=== PATIENT | female | born 1990 | race Caucasian/White ===

== ENCOUNTER 2020-03-11 16:38 | Emergency (ER) | payer OTHER, MEDICAID, SELFPAY ==
[2020-03-11 16:43] VITALS: BP 148/77; PULSE 65; RESP 20; TEMP 37.1; O2SAT 99
--- NOTE | 2020-03-11 17:15 | ED.GENADULT ---
HPI - General Adult General Chief complaint: Ear Stated complaint: EAR INF Time Seen by Provider: 03/11/20 17:18 Source: patient and RN notes reviewed Mode of arrival: ambulatory Limitations: no limitations History of Present Illness HPI narrative: 29-year-old female presents with complaints of left otalgia and drainage for 1 day. Has been swimming and getting water into ear. Tylenol last at 08:00 with little relief. Denies trouble hearing. Denies URI symptoms, No high fevers or chills. Denies injury to the ear. No nasal drainage and congestion. Denies nausea, vomiting, tinnitus, and dizziness. The patient reports she have not been diagnosed with COVID-19. The patient reports she is not waiting for the results of a COVID-19 lab test. The patient reports she do not have fever, chills, weakness, fatigue, myalgia, or facial swelling. The patient reports she do not have a new or worsening cough or shortness of breath. Denies chest pain. The patient reports he do not have any rhinorrhea, congestion, sore throat, abdominal pain, and diarrhea. Tolerating po intake well. Denies recent traveling. Denies concerns for COVID-19 or exposures been home with limited outdoor exposure except for essential household needs, work, and return home. At this time, patient is not suspected of having COVID-19. Some parts of this dictation were generated by voice recognition software and may contain typographical and/or grammatical inaccuracies. Related Data Allergies Allergy/AdvReac Type Severity Reaction Status Date / Time No Known Allergies Allergy Verified 03/11/20 16:54 Review of Systems Review of Systems: Narrative: CONSTITUTIONAL: Denies fever, chills, sweats. EYES: Denies visual changes, redness, discharge. ENT: Denies rhinorrhea, congestion, sore throat, itching. Complains of LT otalgia and drainage. CARDIOVASCULAR: Denies chest pain, palpitations, edema. RESPIRATORY: Denies dyspnea, wheezing, cough. GASTROINTESTINAL: Denies abdominal pain, nausea, vomiting, diarrhea. GENITOURINARY: Denies dysuria, hematuria, abnormal discharge. SKIN: Denies rash or itching. MUSCULOSKELETAL: Denies acute back pain, joint pain, or myalgia. NEUROLOGIC: Denies numbness or focal weakness. PSYCHIATRIC: Denies anxiety or depression. All systems reviewed & are unremarkable except as noted in HPI and below PMFSH Past Medical History Medical History (Updated 03/18/20 @ 11:33 by MARIELLA Dacosta) History of gastroesophageal reflux (GERD) Hx of migraines Surgical History Surgical History (Updated 03/18/20 @ 11:33 by MARIELLA Dacosta) No significant past surgical history Family History Family History (Updated 03/18/20 @ 11:34 by MARIELLA Dacosta) Father Unknown family medical history Mother Hypertension Lupus Social History Social History (Updated 03/18/20 @ 11:36 by MARIELLA Dacosta) Smoking status: Never smoker Living arrangements: with family Occupation/Education: occupation Gender identity (if verbalized by the patient): Female Sexual Orientation (if Verbalized by the Patient): Straight or Heterosexual Comments At time of signature, I have reviewed and agree with nursing past medical, surgical, social, and family history. Please see nursing chart for further information. There is no relevant family history pertinent to the presenting complaint. Exam Narrative: Exam Narrative: GENERAL: This is a well-nourished, well-developed patient, in no apparent distress. Talks in full sentences and ambulates with steady gait without dyspnea HEAD: normocephalic, atraumatic. EYES: PERRL. Sclera clear/white. Vision is grossly intact. EARS: Pinna is normal shape and contour. LT ear with mild erythema and swelling of canal without discharge, tenderness to auricle and pinna with palpation and manipulation. No active drainage. Clear external auditory canals. RT TM pearly rao with good cone of light, no erythe
[2020-03-11 17:30] VITALS: BP 124/76
== END 2020-03-11 17:30 | disposition home or self-care (01) ==
PROVIDERS: Emergency Provider Nurse Practitioner Family; PCP Family Medicine
DX: H60.93 Unspecified otitis externa, bilateral (principal)
CPT/HCPCS: 99213; G0463

== ENCOUNTER 2020-05-23 10:36 | Outpatient (CLI) | payer OTHER, MEDICAID, SELFPAY ==
--- NOTE | ~2020-05-23 | MR_ITS ---
EXAMINATION: MR pituitary wo/w con DATE: 05/23/2020 12:05 INDICATION: Hyperprolactinemia. TECHNIQUE: Magnetic resonance imaging (MRI) of the brain and brainstem was performed without and with 20 mL MultiHance intravenous contrast. Whole-brain sequences included sagittal T1-weighted FSE, axia l diffusion-weighted FS EPI, axial T2*-weighted GRE, axial T2-weighted FLAIR Propeller, and axial T2- weighted Propeller. Small zrzhj-on-mlyt sequences included sagittal and coronal T1-weighted FSE cente red at the pituitary. Postcontrast sequences included small msqee-fm-zhph coronal T1-weighted FSE in a time course and sagittal T1-weighted FSE and whole-brain axial T1-weighted FSE. Apparent diffusion coefficient (ADC) maps were created. COMPARISON: None. FINDINGS: The pituitary is normal in size with height of 6 mm and concave superior margin. There is a 5 mm hypoenhancing mass in the pituitary on the right. There is no intracranial hemorrhage or acute infarction. The ventricles are normal in size. There is a left mastoid effusion. The orbits are nayeli l. There is mild mucosal thickening in sphenoid sinus. IMPRESSION: 1. 5 mm pituitary mass, consistent with a microadenoma. Reviewed, dictated and finalized at location A.
[2020-05-23 11:27] LABS: Estimated Glomerular Filt Rate > 60
== END 2020-05-23 10:37 | disposition home or self-care (01) ==
LOC: ANHIMG 10:45
PROVIDERS: PCP Family Medicine; Visit Provider Advanced Practice Midwife
DX: E22.1 Hyperprolactinemia (principal); N91.2 Amenorrhea, unspecified; R93.89 Abnormal findings on diagnostic imaging of other specified body structures
CPT/HCPCS: 70553; A9577

== ENCOUNTER 2020-06-17 09:19 | Emergency (ER) | payer OTHER, MEDICAID, SELFPAY ==
--- NOTE | ~2020-06-17 | XR_ITS ---
EXAMINATION: XR shoulder RT min 2V DATE: 06/17/2020 09:49 INDICATION: Right shoulder pain. TECHNIQUE: 5 views of right shoulder were obtained. COMPARISON: None. FINDINGS: Bone alignment is normal. No fracture. Joint spaces are well maintained. IMPRESSION: 1. Normal right shoulder. Reviewed, dictated and finalized at location A. [employer] IMPRESSION: 1. Normal right shoulder.
[2020-06-17 09:31] VITALS: BP 119/71; PULSE 68; RESP 18; TEMP 36.9; O2SAT 99
--- NOTE | 2020-06-17 10:13 | ED.UPPEXIN ---
HPI - Extremity Injury (Upper) General Chief Complaint: Extremity Injury, Upper Stated Complaint: Shoulder pain Source: patient Mode of arrival: ambulatory Limitations: no limitations History of Present Illness HPI narrative: Patient is a 30-year-old female who presents complaining of right shoulder pain. Patient reports trip and fall last night onto right shoulder. No visible bruising, reports pain with palpation as well as with range of motion. She denies taking wwdt-nvc-[id number] pain medications for relief or ice for pain. She denies other injuries. MD complaint: injury to: right and shoulder Related Data Allergies Allergy/AdvReac Type Severity Reaction Status Date / Time No Known Allergies Allergy Verified 06/17/20 10:01 Review of Systems Review of Systems: Narrative: CONSTITUTIONAL: Denies fever, chills, or sweats. EYES: Denies visual changes, redness, or discharge. ENT: Denies rhinorrhea, congestion, sore throat, or otalgia. CARDIOVASCULAR: Denies chest pain, palpitations, or edema. RESPIRATORY: Denies cough or dyspnea. GASTROINTESTINAL: Denies abdominal pain, nausea, vomiting, or diarrhea. GENITOURINARY: Denies dysuria or hematuria. SKIN: Denies rash or itching. MUSCULOSKELETAL: Right shoulder pain after fall NEUROLOGIC: Denies headache, numbness, dizziness, or weakness. PSYCHIATRIC: Denies anxiety or depression. PMFSH Past Medical History Medical History History of gastroesophageal reflux (GERD) Hx of migraines Surgical History Surgical History No significant past surgical history Family History Family History Father Unknown family medical history Mother Hypertension Lupus Social History Social History Smoking status: Never smoker Gender identity (if verbalized by the patient): Female Exam Narrative: Exam Narrative: GENERAL: Well-appearing, well-nourished, and in no acute distress. HEAD: Normocephalic, atraumatic. EYES: No redness or drainage. ENT: Mucous membranes pink and moist. CHEST: No respiratory distress. HEART: Regular rate and rhythm. . EXTREMITIES: Normal range of motion. No edema or ecchymosis, neurovascularly intact SKIN: Warm, dry, no rash. NEURO: No focal deficits. Alert and oriented x3. Gait steady. PSYCH: Normal affect. No signs of depression or anxiety. Course Vital Signs Vital signs: Vital Signs Temperature 36.9 C 06/17/20 09:31 Pulse Rate 68 06/17/20 09:31 Respiratory Rate 18 06/17/20 09:31 Blood Pressure 119/71 06/17/20 09:31 Pulse Oximetry 99 06/17/20 09:31 Temperature 36.9 C 06/17/20 09:31 Pulse Rate 68 06/17/20 09:31 Respiratory Rate 18 06/17/20 09:31 Blood Pressure 119/71 06/17/20 09:31 Pulse Oximetry 99 06/17/20 09:31 MDM - Extremity Injury (Upper) MDM Narrative Medical decision making narrative: Patient shoulder x-ray is negative. Patient has contusion and muscle pain related to fall. Discussed with patient taking muscle relaxant, using ice as well as ibuprofen. Patient requesting a note for no heavy lifting for the next few days. Patient agrees to plan of care and is stable for discharge to home with outpatient follow-up as discussed. Patient is aware that if pain continues, that she should follow-up with her PCP for further diagnostic testing. Differential Diagnosis Differential diagnosis: Likely dislocation of shoulder, fracture of clavicle and other (Contusion) Medical Records Attestation: I reviewed the patient's medical records. Imaging Data Radiologist's impression: ITS Impressions Shoulder X-Ray 06/17/20 09:54 IMPRESSION: 1. Normal right shoulder. Critical Care Time Critical Care Time Critical Care Time: No Discharge Plan Discharge Clinical Impression:
== END 2020-06-17 10:25 | disposition home or self-care (01) ==
PROVIDERS: Emergency Provider Nurse Practitioner; PCP Family Medicine
DX: M25.511 Pain in right shoulder (principal); W19.XXXA Unspecified fall, initial encounter; K21.9 Gastro-esophageal reflux disease without esophagitis
CPT/HCPCS: 73030; 99213; G0463

== ENCOUNTER 2020-07-19 18:11 | Emergency (ER) | payer OTHER, MEDICAID, SELFPAY ==
[2020-07-19 18:20] VITALS: BP 132/77; PULSE 73; RESP 18; TEMP 36.9; O2SAT 99
--- NOTE | 2020-07-19 18:25 | ED.SKABFB ---
HPI - Skin/Abscess/Foreign Bdy General Chief complaint: Skin/Abscess/Foreign Body Stated complaint: Infection Time Seen by Provider: 07/19/20 18:25 Source: patient and RN notes reviewed History of Present Illness HPI narrative: Patient is a 30-year-old female who presents the urgent care with complaints of a blister to the left little toe. Patient states she noticed it this morning and it has some mild surrounding redness. Patient states that she was wearing rain boots the last couple days that could have rubbed the area. States that it is painful. Patient has not put anything umgb-[id number]-[id number] onto the blister. No other acute complaints. No acute distress noted. Patient aware of the plan of care. Some parts of this dictation were generated by voice recognition software and may contain typographical and/or grammatical inaccuracies. Related Data Home Medications Medication Instructions Recorded Confirmed cabergoline 0.5 mg PO 2XW 07/19/20 07/19/20 Allergies Allergy/AdvReac Type Severity Reaction Status Date / Time No Known Allergies Allergy Verified 07/19/20 18:27 Review of Systems Review of Systems: Narrative: CONSTITUTIONAL: Denies fever, chills, or sweats. EYES: Denies visual changes, redness, or discharge. ENT: Denies rhinorrhea, congestion, sore throat, or otalgia. CARDIOVASCULAR: Denies chest pain, palpitations, or edema. RESPIRATORY: Denies cough or dyspnea. GASTROINTESTINAL: Denies abdominal pain, nausea, vomiting, or diarrhea. GENITOURINARY: Denies dysuria or hematuria. SKIN: Reports of a blister to the left pinky toe MUSCULOSKELETAL: Denies back pain, joint pain, or myalgia. NEUROLOGIC: Denies headache, numbness, or weakness. All other systems reviewed are negative, except as documented in HPI. [facility] Past Medical History Medical History History of gastroesophageal reflux (GERD) Hx of migraines Surgical History Surgical History No significant past surgical history Family History Family History Father Unknown family medical history Mother Hypertension Lupus Social History Social History (Reviewed 06/17/20 @ 10:14 by PELON Escoto Smoking status: Never smoker Gender identity (if verbalized by the patient): Female Comments At the time of my signature, I reviewed and agree with the nursing past medical, surgical, social, and family history. There is no relevant family history pertinent to the patient complaint. Exam Narrative: Exam Narrative: GENERAL: This is a well-nourished, well-developed patient, in no apparent distress. HEAD: normocephalic, atraumatic. EYES: PERRL. Sclera clear/white. Vision is grossly intact. EARS: External ears normal NOSE: External nose normal with no obvious nasal discharge, nares without redness, no rhinorrhea. THROAT: Mucous membranes moist NECK: Neck supple SKIN: Less than 1 cm blood blister to the dorsal aspect of the left pinky toe with mild surrounding erythema?no signs of cellulitis. Warm, intact with no suspicious lesions or rash, good texture and turgor. NEURO: awake, alert, and oriented to person, place and time. There were no obvious focal neurologic abnormalities. EXTREMITIES: No clubbing, cyanosis, or edema. Course Vital Signs Vital signs: Vital Signs Temperature 98.4 F 07/19/20 18:20 Pulse Rate 73 07/19/20 18:20 Respiratory Rate 18 07/19/20 18:20 Blood Pressure 132/77 07/19/20 18:20 Pulse Oximetry 99 07/19/20 18:20 Temperature 98.4 F 07/19/20 18:20 Pulse Rate 73 07/19/20 18:20 Respiratory Rate 18 07/19/20 18:20 Blood Pressure 132/77 07/19/20 18:20 Pulse Oximetry 99 07/19/20 18:20 Reviewed MDM - Skin/Abscess/Foreign Bdy MDM Narrative Medical decision making narrative: Educated the patient on blood blisters and that there is n
== END 2020-07-19 18:39 | disposition home or self-care (01) ==
PROVIDERS: Emergency Provider Nurse Practitioner Family; PCP Family Medicine
DX: S90.425A Blister (nonthermal), left lesser toe(s), initial encounter (principal); X58.XXXA Exposure to other specified factors, initial encounter; K21.9 Gastro-esophageal reflux disease without esophagitis
CPT/HCPCS: 99213; G0463

== ENCOUNTER 2020-09-21 11:40 | Emergency (ER) | payer OTHER, MEDICAID, SELFPAY ==
[2020-09-21 11:46] VITALS: BP 146/84; PULSE 83; RESP 14; TEMP 36.8; O2SAT 99
--- NOTE | 2020-09-21 12:02 | ED.FEMALEGU ---
HPI - Female Genitourinary General Chief complaint: Urogenital-Female Stated complaint: Poss UTI Time Seen by Provider: 09/21/20 12:02 Source: patient and RN notes reviewed Mode of arrival: ambulatory Limitations: no limitations History of Present Illness HPI Narrative: 30 year old female who presents to express care with complaints of 2 week duration of difficulty with urination. Patient states she was seen in the ED at [facility] and was put on Cipro antibiotic. She was notified then that the culture didn't show any organism and then burning of urination stopped about a week ago. Patient states that she is still having problems with starting her stream of urine and she called her OB doctor for follow up and was unable to get appointment, was told to come to express care and have STD check. Patient states that she has had a new sexual partner, denies any vaginal drainage or any lesions, no CVA tenderness or any suprapubic pain. Patient states that she is on medication for pituitary abnormality of increased prolactin level and is seeing principal account clerk. MD elicited complaint: difficulty urinating Pertinent past history: other (elevated prolactin level sees principal account clerk) Onset (ago): week(s) (2) Location of symptoms: other (difficulty passing urine) Severity: mild Female Urogenital Radiation: Non-Radiating Consistency: constant Vaginal discharge: none Vaginal bleeding: none Urinary symptoms: Difficulty Urinating Relieving factors: none Treatment prior to arrival: other (took Cipro that was ordered at ER and has been taking Ibuprofen) Sexual activity: Yes Patient : No Related Data Home Medications Medication Instructions Recorded Confirmed cabergoline 0.5 mg PO 2XW 07/19/20 09/21/20 Allergies Allergy/AdvReac Type Severity Reaction Status Date / Time No Known Allergies Allergy Verified 09/21/20 11:59 Review of Systems Review of Systems: Narrative: CONSTITUTIONAL: Denies fever, chills, or sweats. EYES: Denies visual changes, redness, or discharge. ENT: Denies rhinorrhea, congestion, sore throat, or otalgia. CARDIOVASCULAR: Denies chest pain, palpitations, or edema. RESPIRATORY: Denies cough or dyspnea. GASTROINTESTINAL: Denies abdominal pain, nausea, vomiting, or diarrhea. GENITOURINARY: Positive dysuria or hematuria, states difficulty urinating, denies any urgency or frequency SKIN: Denies rash or itching. MUSCULOSKELETAL: Denies back pain, joint pain, or myalgia. NEUROLOGIC: reports rare headache,some numbness to tops of thighs, denies any weakness PSYCHIATRIC: Denies anxiety or depression. All systems reviewed & are unremarkable except as noted in HPI and below PMFSH Past Medical History Medical History (Updated 09/21/20 @ 17:23 by Brittany Dotson NP) History of gastroesophageal reflux (GERD) Hx of migraines Pituitary abnormality Surgical History Surgical History No significant past surgical history Family History Family History Father Unknown family medical history Mother Hypertension Lupus Social History Social History (Updated 09/21/20 @ 14:11 by Brittany Dotson NP) Smoking status: Never smoker Alcohol intake: current Alcohol use details: rare Substance use: never Living arrangements: with family Gender identity (if verbalized by the patient): Female Comments At time of signature, agree with nursing past medical, surgical, social and family history. There is no relevant family history pertinent to the presenting complaint Exam Narrative: Exam Narrative: GENERAL: Well-appearing, well-nourished, and in no acute distress. HEAD: Normocephalic, atraumatic. EYES: PERRLA and EOMI. ENT: Nares clear, no rhinorrhea or epistaxis. Mucous membranes moist.TM s normal with good light reflex, throat pink with no exudates or tonsil enlargement NECK: Supple.no lymphaden
[2020-09-21] MEDS: cefTRIAXone 250 MG VIAL IM (12:41)
[2020-09-21] MEDS: AZITHROMYCIN 250 MG TABLET 1000 MG PO (12:41)
[2020-09-21] MEDS: LIDOCAINE HCL 1% LOCAL INJ 20 ML VIAL IM (12:42)
== END 2020-09-21 13:02 | disposition home or self-care (01) ==
PROVIDERS: Emergency Provider Registered Nurse
DX: R39.11 Hesitancy of micturition (principal); R30.0 Dysuria; K21.9 Gastro-esophageal reflux disease without esophagitis
CPT/HCPCS: 81003; 87086; 87491; 87591; 87661; 96372; 99214; A9270; G0463; J0696

== ENCOUNTER 2020-12-07 08:53 | Emergency (ER) | payer OTHER, MEDICAID, SELFPAY ==
--- NOTE | 2020-12-07 08:56 | ED.URI ---
HPI - URI/Sore Throat General Chief Complaint: Upper Respiratory Infection Stated Complaint: Sore Throat Time Seen by Provider: 12/07/20 08:56 Source: patient and RN notes reviewed History of Present Illness HPI Narrative: Patient is a 30-year-old female who presents the urgent care with complaints of sore throat since yesterday at 3 AM. Patient states it woke her up out of her sleep. Reports of postnasal drainage but denies any other symptoms including fever, chills, nausea, vomiting, cough. Patient has not taken anything [id number] for her symptoms. No other acute complaints. No acute distress noted. Patient aware of the plan of care. Some parts of this dictation were generated by voice recognition software and may contain typographical and/or grammatical inaccuracies. Related Data Home Medications Medication Instructions Recorded Confirmed cabergoline 0.5 mg PO 2XW 07/19/20 09/21/20 medroxyprogesterone 150 mg IM [id number] 12/07/20 12/07/20 Allergies Allergy/AdvReac Type Severity Reaction Status Date / Time No Known Allergies Allergy Verified 12/07/20 09:05 Review of Systems Review of Systems: Narrative: CONSTITUTIONAL: Denies fever, chills, or sweats. EYES: Denies visual changes, redness, or discharge. ENT: Reports of sore throat and postnasal drainage CARDIOVASCULAR: Denies chest pain, palpitations, or edema. RESPIRATORY: Denies cough or dyspnea. GASTROINTESTINAL: Denies abdominal pain, nausea, vomiting, or diarrhea. GENITOURINARY: Denies dysuria or hematuria. SKIN: Denies rash or itching. MUSCULOSKELETAL: Denies back pain, joint pain, or myalgia. NEUROLOGIC: Denies headache, numbness, or weakness. All other systems reviewed are negative, except as documented in HPI. [facility] Past Medical History Medical History (Updated 12/07/20 @ 09:06 by MARIELLA Goetz) History of gastroesophageal reflux (GERD) Hx of migraines Pituitary abnormality Surgical History Surgical History No significant past surgical history Family History Family History Father Unknown family medical history Mother Hypertension Lupus Social History Social History (Updated 09/21/20 @ 14:11 by Brittany Dotson NP) Smoking status: Never smoker Alcohol intake: current Substance use: never Gender identity (if verbalized by the patient): Female Comments At the time of my signature, I reviewed and agree with the nursing past medical, surgical, social, and family history. There is no relevant family history pertinent to the patient complaint. Exam Narrative: Exam Narrative: GENERAL: This is a well-nourished, well-developed patient, in no apparent distress. HEAD: normocephalic, atraumatic. EYES: PERRL. Sclera clear/white. Vision is grossly intact. EARS: External ears normal, auditory canals clear and without drainage, TMs normal without perforation. Hearing grossly intact. NOSE: External nose normal with no obvious nasal discharge, nares without redness, no rhinorrhea. THROAT: Mucous membranes moist, posterior pharynx clear. Mild postnasal drainage NECK: Neck supple, non-tender without lymphadenopathy CARDIOVASCULAR: Regular rate and rhythm without murmurs, gallops, or rubs. RESPIRATORY: Clear to auscultation. Breath sounds equal bilaterally. No wheezes, rales, or rhonchi. SKIN: warm, intact with no suspicious lesions or rash, good texture and turgor. NEURO: awake, alert, and oriented to person, place and time. There were no obvious focal neurologic abnormalities. EXTREMITIES: No clubbing, cyanosis, or edema. Course Vital Signs Vital signs: Vital Signs Temperature 99.3 F 12/07/20 08:58 Pulse Rate 71 12/07/20 08:58 Respiratory Rate 18 12/07/20 08:58 Blood Pressure 119/71 12/07/20 08:58 Pulse Oximetry 100 12/07/20 08:58 Temperature 99.3 F 12/07/20 08:58 Pulse Rate 71 04
[2020-12-07 08:58] VITALS: BP 119/71; PULSE 71; RESP 18; TEMP 37.4; O2SAT 100
== END 2020-12-07 09:11 | disposition home or self-care (01) ==
PROVIDERS: Emergency Provider Nurse Practitioner Family; PCP Family Medicine
DX: J02.9 Acute pharyngitis, unspecified (principal); K21.9 Gastro-esophageal reflux disease without esophagitis
CPT/HCPCS: 87081; 87880; 99213; G0463

== ENCOUNTER 2021-03-20 12:38 | Emergency (ER) | payer OTHER, MEDICAID, SELFPAY ==
[2021-03-20 12:43] VITALS: BP 140/92; PULSE 67; RESP 14; TEMP 37.4; O2SAT 99
== END 2021-03-20 13:30 | disposition left against medical advice (07) ==
LOC: EXPBETH 12:41
PROVIDERS: Emergency Provider Registered Nurse; PCP Family Medicine
DX: Z53.21 Procedure and treatment not carried out due to patient leaving prior to being seen by health care provider (principal)
CPT/HCPCS: 99199

== ENCOUNTER 2021-03-22 09:34 | Emergency (ER) | payer OTHER, MEDICAID, SELFPAY ==
[2021-03-22 09:56] VITALS: BP 131/85; PULSE 67; RESP 20; TEMP 37.7; O2SAT 100
--- NOTE | 2021-03-22 09:59 | ED.FEMALEGU ---
HPI - Female Genitourinary General Chief complaint: Urogenital-Female Stated complaint: poss yeast infection Source: patient and family Mode of arrival: ambulatory History of Present Illness HPI Narrative: patient presents with concerns for std. patient recently treated for yeast and bacterial vaginitis. patient states she completed treatment as prescribed, but continues to have vaginal discharge. no abdominal pain no pelvic pain no gross hematuria and no flank pain. .patient states her boyfriend was recenlty treated for chlamydia and she is concerned that she may have chlamydia. MD elicited complaint: vaginal discharge Related Data Home Medications Medication Instructions Recorded Confirmed medroxyprogesterone 150 mg IM [id number] 12/07/20 03/22/21 Allergies Allergy/AdvReac Type Severity Reaction Status Date / Time No Known Allergies Allergy Verified 03/22/21 10:04 Review of Systems Review of Systems: CONSTITUTIONAL: Denies fever, chills, or sweats. EYES: Denies visual changes, redness, or discharge. ENT: Denies rhinorrhea, congestion, sore throat, or otalgia. CARDIOVASCULAR: Denies chest pain, palpitations, or edema. RESPIRATORY: Denies cough or dyspnea. GASTROINTESTINAL: Denies abdominal pain, nausea, vomiting, or diarrhea. GENITOURINARY: Denies dysuria or hematuria. SKIN: Denies rash or itching. MUSCULOSKELETAL: Denies back pain, joint pain, or myalgia. NEUROLOGIC: Denies headache, numbness, or weakness. PSYCHIATRIC: Denies anxiety or depression. [facility] Past Medical History Medical History (Updated 03/22/21 @ 10:26 by MARIELLA Prieto) History of gastroesophageal reflux (GERD) Hx of migraines Pituitary abnormality Surgical History Surgical History No significant past surgical history Family History Family History Father Unknown family medical history Mother Hypertension Lupus Social History Social History (Updated 09/21/20 @ 14:11 by Brittany Dotson NP) Smoking status: Never smoker Alcohol intake: current Alcohol use details: rare Substance use: never Gender identity (if verbalized by the patient): Female Comments At time of signature, agree with nursing past medical, surgical, social and family history. There is no relevant family history pertinent to the presenting complaint Exam Narrative: GENERAL: Well-appearing, well-nourished, and in no acute distress. HEAD: Normocephalic, atraumatic. EYES: PERRLA and EOMI. ENT: Nares clear, no rhinorrhea or epistaxis. Mucous membranes moist. NECK: Supple. CHEST: Clear to auscultation. No respiratory distress. HEART: Regular rate and rhythm. No murmur heard. Normal peripheral pulses. ABDOMEN: Soft, nontender, nondistended, normal active bowel sounds. EXTREMITIES: Normal range of motion. No edema. SKIN: Warm, dry, no rash. NEURO: No focal deficits. Alert and oriented x3. Brenda Coma Scale Eye Opening: Spontaneous 4 Lorena Coma Scale Motor: Obeys Commands 6 Lorena Coma Scale Verbal: Oriented 5 Lorena Coma Scale Total 15 Course Vital Signs Vital signs: Vital Signs Temperature 37.7 C H 03/22/21 09:56 Pulse Rate 67 03/22/21 09:56 Respiratory Rate 20 03/22/21 09:56 Blood Pressure 131/85 03/22/21 09:56 Pulse Oximetry 100 03/22/21 09:56 Temperature 37.7 C H 03/22/21 10:08 Pulse Rate 67 03/22/21 10:08 Respiratory Rate 20 03/22/21 10:08 Blood Pressure 131/85 03/22/21 10:08 Pulse Oximetry 100 03/22/21 10:08 Please ROSALINDA schedule a followup visit with your personal physician for further evaluation and treatment. Including recheck and discussion of your blood pressure. If your symptoms persist, change or worsen significantly before you can contact your personal physician then please, without delay, go to the emergency department for further evaluation Critical dx considered and di
[2021-03-22 10:08] VITALS: BP 131/85; PULSE 67; RESP 20; TEMP 37.7; O2SAT 100
== END 2021-03-22 10:30 | disposition home or self-care (01) ==
PROVIDERS: Emergency Provider Nurse Practitioner Family; PCP Family Medicine
DX: N76.0 Acute vaginitis (principal); Z20.2 Contact with and (suspected) exposure to infections with a predominantly sexual mode of transmission; K21.9 Gastro-esophageal reflux disease without esophagitis
CPT/HCPCS: 81003; 81025; 87491; 87591; 87661; 99214; G0463

== ENCOUNTER 2021-12-06 18:58 | Emergency (ER) | payer OTHER, MEDICAID, SELFPAY ==
[2021-12-06 19:05] VITALS: BP 145/83; PULSE 70; RESP 16; TEMP 36.7; O2SAT 100
--- NOTE | 2021-12-06 20:37 | ED.EAR ---
HPI - Ear Problem General Chief complaint: Ear Stated complaint: Ear Pain Time Seen by Provider: 12/06/21 20:37 Source: patient and RN notes reviewed Mode of arrival: ambulatory Limitations: no limitations History of Present Illness HPI Narrative: 31 year old female who presents to [facility] care with complaints of right ear pain since yesterday which has progressively worsened today. Patient denies any known fevers, chills or sweats, denies any sinus congestion or drainage or any cough. Patient reports that ear is painful even to touch, no drainage from right ear or any ringing in ear.. Patient has had COVID vaccinations and also flu shot this season. Patient has not taken any OTC medications. MD Complaint: ear pain Location: right ear Duration: constant Severity: moderate Discharge from ear: Reports no Associated symptoms ear: external ear tenderness Treatment prior to arrival: none Related Data Home Medications Medication Instructions Recorded Confirmed medroxyprogesterone 150 mg IM [id number] 12/07/20 12/06/21 cabergoline 0.25 mg PO 2XW 12/06/21 12/06/21 Allergies Allergy/AdvReac Type Severity Reaction Status Date / Time No Known Allergies Allergy Verified 12/06/21 19:28 Review of Systems Review of Systems: CONSTITUTIONAL: Denies fever, chills, or sweats. EYES: Denies visual changes, redness, or discharge. ENT: Denies rhinorrhea, congestion, sore throat, positive for right ear pain CARDIOVASCULAR: Denies chest pain, palpitations, or edema. RESPIRATORY: Denies cough or dyspnea. GASTROINTESTINAL: Denies abdominal pain, nausea, vomiting, or diarrhea. GENITOURINARY: Denies dysuria or hematuria. SKIN: Denies rash or itching. MUSCULOSKELETAL: Denies back pain, joint pain, or myalgia. NEUROLOGIC: Denies headache, numbness, or weakness. PSYCHIATRIC: Denies anxiety or depression. All systems reviewed & are unremarkable except as noted in HPI and below PMFSH Past Medical History Medical History History of gastroesophageal reflux (GERD) Hx of migraines Pituitary abnormality Surgical History Surgical History No significant past surgical history Family History Family History Father Unknown family medical history Mother Hypertension Lupus Social History Social History Smoking status: Never smoker Alcohol intake: current Alcohol use details: rare Substance use: never Gender identity (if verbalized by the patient): Female Sexual Orientation (if Verbalized by the Patient): Straight or Heterosexual Comments At time of signature, agree with nursing past medical, surgical, social and family history. There is no relevant family history pertinent to the presenting complaint Exam Narrative: GENERAL: Well-appearing, well-nourished, and in no acute distress. HEAD: Normocephalic, atraumatic. EYES: PERRLA and EOMI. ENT: Nares clear, no rhinorrhea or epistaxis. Mucous membranes moist.Right TM red and bulging no drainage noted ear canal also red and excoriated, tragal tenderness no periauricular lymph node swelling or pain behind ear. Left TM normal with good light reflex, throat pink with no lesions or exudates or tonsil redness noted. NECK: Supple.no lymphadenopathy CHEST: Clear to auscultation. No respiratory distress. HEART: Regular rate and rhythm. No murmur heard. Normal peripheral pulses. ABDOMEN: Soft, nontender, nondistended, normal active bowel sounds. EXTREMITIES: Normal range of motion. No edema. SKIN: Warm, dry, no rash. NEURO: No focal deficits. Alert and oriented x3. Course Course Level of Care: Express Care Visit Vital Signs Vital signs: Vital Signs Temperature 36.7 C 12/06/21 19:05 Pulse Rate 70 12/06/21 19:05 Respiratory Rate 16 12/06/21 19:05 Blood Pressure
== END 2021-12-06 20:50 | disposition home or self-care (01) ==
PROVIDERS: Emergency Provider Registered Nurse
DX: H66.90 Otitis media, unspecified, unspecified ear (principal); H60.90 Unspecified otitis externa, unspecified ear
CPT/HCPCS: 99213; G0463

== ENCOUNTER 2022-03-04 14:35 | Emergency (ER) | payer OTHER, MEDICAID, SELFPAY ==
--- NOTE | ~2022-03-04 | US_ITS ---
EXAMINATION: US abdomen limited DATE: 03/04/2022 16:06 INDICATION: Right upper quadrant pain TECHNIQUE: Multiple grayscale and Doppler ultrasound images of the abdomen were obtained. COMPARISON: None available FINDINGS: The head and body of the pancreas are normal. The pancreatic tail is obscured by bowel gas. The liver is normal with normal echogenicity and echotexture. No surface nodularity. Normal hepatope pao flow in the main portal vein. The gallbladder is normal with no abnormal wall thickening, pericho lecystic fluid or stones. The normal common bile duct measures 4 mm. There was no sonographic Booker sign. IMPRESSION: 1. Normal sonographic study of the gallbladder. Reviewed, dictated and finalized at location B.
[2022-03-04 14:41] VITALS: BP 133/88; PULSE 77; RESP 14; TEMP 36.9; O2SAT 99
--- NOTE | 2022-03-04 14:57 | PC.NURSE ---
Pt stated that [facility] there. Pt stated unable to urinate at this time. Pt stated that the test was negative.
[2022-03-04 15:00] LABS: Basophils Percent Auto 0.3 % (0.2-1.2); Eosinophils Absolute Auto 0.2 K/mm3 (0-0.3); Eosinophils Percent Auto 1.7 % (0-4.4); Hematocrit 38.3 % (37.0-47.0); Hemoglobin 12.8 g/dL (12.0-15.0); Immature Granulocyte Absolute 0.04 K/mm3 (0.00-0.031); Immature Granulocyte Percent A 0.5 % (0-0.5); Lymphocytes Absolute Auto 2.41 K/mm3 (0.9-3.2); Lymphocytes Percent Auto 27.4 % (18.3-44.2); Mean Corpuscular HGB Conc 33.4 g/dl (32-36); Mean Corpuscular Hemoglobin 27.6 pg (26-34); Mean Corpuscular Volume 82.5 fl (80-100); Mean Platelet Volume 8.9 fl (7.4-10.4); Monocytes Absolute Auto 0.8 K/mm3 (0.1-0.6); Monocytes Percent Auto 8.9 % (2.6-8.5); Neutrophils Absolute Auto 5.4 K/mm3 (1.3-6.7); Neutrophils Percent Auto 61.2 % (45.5-73.1); Platelet Count Result 269 k/mm3 (150-375); Red Blood Count 4.64 M/mm3 (4.2-5.4); Red Cell Distribution Width 12.7 % (11.5-14.5); White Blood Count 8.8 K/mm3 (4.5-10.0)
[2022-03-04 15:10] LABS: Alanine Aminotransferase 16 U/L (6-35); Albumin Level 4.4 g/dL (3.5-5.1); Alkaline Phosphatase 72 U/L (38-126); Anion Gap 10 mmol/L (8-16); Aspartate Amino Transferase 21 U/L (14-36); Bilirubin,Total 0.4 mg/dL (0.2-1.3); Blood Urea Nitrogen 13 mg/dL (7-17); Calcium 8.9 mg/dL (8.4-10.2); Carbon Dioxide 24 mmol/L (22-30); Chloride 103 mmol/L (98-107); Estimated CRCL calculation 142 ml/min; Estimated Glomerular Filt Rate > 60; Glucose 106 mg/dL (65-110); Lipase 108 U/L (23-300); Potassium 3.9 mmol/L (3.4-5.0); Sodium 137 mmol/L (137-145)
--- NOTE | 2022-03-04 15:39 | ED.ABDPAIN ---
HPI - Abdominal Pain General Chief Complaint: Abdominal Pain <DAVID Peterson Last Filed: 03/04/22 19:08> Stated Complaint: abd pain <ADVID Peterson Last Filed: 03/04/22 19:08> Time Seen by Provider: 03/04/22 15:26 <DAVID Peterson Last Filed: 03/04/22 19:08> History of Present Illness HPI narrative: 31-year-old female here for evaluation of right upper quadrant abdominal pain for the past day. States the pain is sharp and shooting in nature, is intermittent, unprovoked by positions or eating. States it is a mild pain, she has not attempted any medication for pain. She denies any other symptoms, including nausea, vomiting, fevers, chills, diarrhea, constipation. Denies any surgeries on her abdomen. <DAVID Peterson Last Filed: 03/04/22 19:08> Related Data Home Medications: Home Medications Medication Instructions Recorded Confirmed medroxyprogesterone 150 mg/mL 150 mg IM [id number] 12/07/20 12/06/21 intramuscular syringe cabergoline 0.5 mg tablet 0.25 mg PO 2XW 12/06/21 12/06/21 <DAVID Peterson Last Filed: 03/04/22 19:08> Allergies/Adverse Reactions: Allergies Allergy/AdvReac Type Severity Reaction Status Date / Time No Known Allergies Allergy Verified 12/06/21 19:28 <DAVID Peterson Last Filed: 03/04/22 19:08> Review of Systems Review of Systems: Gen: Denies fevers or chills Eyes: Denies eye pain or visual change ENT: Denies congestion Respiratory: Denies shortness of breath or cough CV: Denies chest pain or palpitations GI: Reports abdominal pain. Denies nausea, emesis or diarrhea : denies burning, urgency, frequency or hematuria Musculoskeletal: Denies back pain or muscle pain Neuro: Denies numbness, tingling, weakness or focal weakness Skin: Denies rash Except as documented, all other systems reviewed and negative <Maria Del Rosario Lopez PA-C - Last Filed: 03/04/22 19:08> PMFSH Past Medical History Medical History: Medical History History of gastroesophageal reflux (GERD) Hx of migraines Pituitary abnormality <Maria Del Rosario Lopez PA-C - Last Filed: 03/04/22 19:08> Surgical History Surgical History: Surgical History No significant past surgical history <Maria Del Rosario Lopez PA-C - Last Filed: 03/04/22 19:08> Family History Family History: Family History Father Unknown family medical history Mother Hypertension Lupus <Maria Del Rosario Lopez PA-C - Last Filed: 03/04/22 19:08> Social History Social History: Social History Smoking status: Never smoker Alcohol intake: current Alcohol use details: rare Substance use: never Gender identity (if verbalized by the patient): Female Sexual Orientation (if Verbalized by the Patient): Straight or Heterosexual <Maria Del Rosario Lopez PA-C - Last Filed: 03/04/22 19:08> Exam Narrative: APPEARANCE: Well appearing, no pain in distress, well-nourished. Head: Normocephalic and atraumatic. EYES: PERRLA/EOMI, conjunctivae clear NOSE: No nasal drainage EARS: External ear normal in appearance THROAT: Oropharynx is clear. Mucous membranes are moist. NECK: Supple. No adenopathy, no masses. RESPIRATORY: Airway patent, respirations nonlabored. Clear to auscultation bilaterally, no rales, rhonchi, wheezing. CARDIOVASCULAR: Regular rate and rhythm without murmurs, rubs, or gallops. ABDOMINAL: No tenderness to palpation in abdomen. Normoactive bowel sounds. Soft, nondistended. No rebound tenderness or guarding. MUSCULOSKELETAL: Extremities are warm and well-perfused. Moves all extremities well. No edema. NEURO: Normal speech. No focal neurologic deficits. SKIN: Skin is w
[2022-03-04 15:58] LABS: Appearance Urine Slightly Cloudy (Clear); Bilirubin Urine Negative (Negative); Color Urine Yellow (Yellow); Glucose Urine UA Negative (Negative); Ketones Urine Negative (Negative); Leukocyte Esterase Ur Negative LEU/UL (Negative); Nitrate Urine Negative (Negative); Protein Urine Negative (Negative); Specific Grav Ur >= 1.030 (1.001-1.035); pH Urine 6.5 (5.0-9.0)
[2022-03-04 16:05] LABS: Bacteria Urine Trace /hpf; Mucus Urine Rare /lpf; Squamous Epithelial Cell Urine Few /hpf (Few); WBC Urine 0-3 /hpf
[2022-03-04 16:09] LABS: Add Urine Microscopic? YES; Blood Urine Trace-Intact (Negative)
[2022-03-04] MEDS: FAMOTIDINE 20 MG/2 ML VIAL IV PUSH (16:23)
[2022-03-04 17:25] VITALS: BP 155/86; PULSE 70; RESP 18; O2SAT 100
== END 2022-03-04 17:27 | disposition home or self-care (01) ==
PROVIDERS: Emergency Provider Emergency Medicine; PCP Family Medicine
DX: R10.11 Right upper quadrant pain (principal); K21.9 Gastro-esophageal reflux disease without esophagitis
CPT/HCPCS: 36415; 76705; 80053; 81001; 81025; 83690; 85025; 96374; 99284

== ENCOUNTER 2022-06-05 11:47 | Emergency (ER) | payer OTHER, MEDICAID, SELFPAY ==
[2022-06-05 11:54] VITALS: BP 137/84; PULSE 69; RESP 20; TEMP 36.8; O2SAT 98
--- NOTE | 2022-06-05 11:57 | ED.FEMALEGU ---
HPI - Female Genitourinary General Chief complaint: Urogenital-Female Stated complaint: std testing Time Seen by Provider: 06/05/22 11:59 Source: patient and RN notes reviewed History of Present Illness HPI Narrative: Patient is a 31-year-old female who presents to the Urgent Care with complaints of vaginal itching and burning. Patient states it started Thursday and she has had a new partner over the last month and has had unprotected sex. Patient states that she has been using ypbi-lai-buzypke yeast medications since Thursday without any improvements. Denies of any vaginal discharge or odor. Denies any pain with urination or intercourse. Patient states that she was seen at her [facility] for her normal Pap approximately 1 month ago and was told that she is positive for herpes as well as HPV. Patient's partner is unaware of these diagnoses. Patient states that she has never had an outbreak but is concerned that maybe that is why she is having vaginal pain at this time. Patient is wanting to be treated for STDs as well as checked for possible UTI. No other acute complaints. No acute distress noted. Patient aware of the plan of care. Some parts of this dictation were generated by voice recognition software and may contain typographical and/or grammatical inaccuracies. Related Data Home Medications Medication Instructions Recorded Confirmed cabergoline 0.5 mg tablet 0.25 mg PO 2XW 12/06/21 06/05/22 Allergies Allergy/AdvReac Type Severity Reaction Status Date / Time No Known Allergies Allergy Verified 12/06/21 19:28 Review of Systems Review of Systems: CONSTITUTIONAL: Denies fever, chills, or sweats. EYES: Denies visual changes, redness, or discharge. ENT: Denies rhinorrhea, congestion, sore throat, or otalgia. CARDIOVASCULAR: Denies chest pain, palpitations, or edema. RESPIRATORY: Denies cough or dyspnea. GASTROINTESTINAL: Denies abdominal pain, nausea, vomiting, or diarrhea. GENITOURINARY: Report of vaginal itchiness and burning SKIN: Denies rash or itching. MUSCULOSKELETAL: Denies back pain, joint pain, or myalgia. NEUROLOGIC: Denies headache, numbness, or weakness. All other systems reviewed are negative, except as documented in HPI. [facility] Past Medical History Medical History History of gastroesophageal reflux (GERD) Hx of migraines Pituitary abnormality Surgical History Surgical History No significant past surgical history Family History Family History Father Unknown family medical history Mother Hypertension Lupus Social History Social History Smoking status: Never smoker Alcohol intake: current Alcohol use details: rare Substance use: never Gender identity (if verbalized by the patient): Female Sexual Orientation (if Verbalized by the Patient): Straight or Heterosexual Comments At the time of my signature, I reviewed and agree with the nursing past medical, surgical, social, and family history. There is no relevant family history pertinent to the patient complaint. Exam Narrative: GENERAL: This is a well-nourished, well-developed patient, in no apparent distress. HEAD: normocephalic, atraumatic. EYES: PERRL. Sclera clear/white. Vision is grossly intact. EARS: External ears normal NOSE: External nose normal with no obvious nasal discharge, nares without redness, no rhinorrhea. THROAT: Mucous membranes moist NECK: Neck supple SKIN: warm, intact with no suspicious lesions or rash, good texture and turgor. NEURO: awake, alert, and oriented to person, place and time. There were no obvious focal neurologic abnormalities. EXTREMITIES: No clubbing, cyanosis, or edema. : mild excoriations/ erythema/ irritation to the inner labia. Speculum not used. No claudia
[2022-06-05] MEDS: cefTRIAXone 1 GM, LIDOCAINE HCL 1% LOCAL INJ 2.1 ML IM (12:21)
== END 2022-06-05 12:52 | disposition home or self-care (01) ==
PROVIDERS: Emergency Provider Nurse Practitioner Family
DX: Z72.51 High risk heterosexual behavior (principal); N39.0 Urinary tract infection, site not specified; K21.9 Gastro-esophageal reflux disease without esophagitis
CPT/HCPCS: 81003; 87086; 87088; 87147; 87491; 87591; 87661; 96372; 99214; G0463; J0696

== ENCOUNTER 2022-09-07 14:53 | Emergency (ER) | payer OTHER, MEDICAID, SELFPAY ==
[2022-09-07 14:56] VITALS: BP 149/75; PULSE 92; RESP 20; TEMP 37.3; O2SAT 100
--- NOTE | 2022-09-07 14:56 | ED.URI ---
HPI - URI/Sore Throat General Chief Complaint: Upper Respiratory Infection Stated Complaint: throat Time Seen by Provider: 09/07/22 14:58 Source: patient and RN notes reviewed Mode of arrival: ambulatory Limitations: no limitations History of Present Illness HPI Narrative: 32-year-old female presents with concern for sore throat that started this morning. She reports headache and stomachache. She denies fever, nasal congestion, rhinorrhea, cough. She did not take any nslo-fjf-xnyedqm medications for her symptoms. MD elicited complaint: sore throat Related Data Home Medications Medication Instructions Recorded Confirmed cabergoline 0.5 mg tablet 0.25 mg PO 2XW 12/06/21 06/05/22 Allergies Allergy/AdvReac Type Severity Reaction Status Date / Time No Known Allergies Allergy Verified 12/06/21 19:28 Review of Systems Review of Systems: CONSTITUTIONAL: Denies malaise, chills, sweats, or fever. EYES: Denies visual changes, redness, or discharge. ENT: Denies rhinorrhea, congestion, sinus pain, otalgia. Reports sore throat. CARDIOVASCULAR: Denies chest pain, palpitations, or edema. RESPIRATORY: Reports cough. Denies dyspnea. GASTROINTESTINAL: Denies abdominal pain, vomiting, diarrhea. Reports nausea SKIN: Denies rash or itching. MUSCULOSKELETAL: Denies myalgia. NEUROLOGIC: Reports headache. All systems reviewed & are unremarkable except as noted in HPI and below PMFSH Past Medical History Medical History History of gastroesophageal reflux (GERD) Hx of migraines Pituitary abnormality Surgical History Surgical History No significant past surgical history Family History Family History Father Unknown family medical history Mother Hypertension Lupus Social History Social History Smoking status: Never smoker Alcohol intake: current Alcohol use details: rare Substance use: never Living arrangements: with family Occupation/Education: occupation Gender identity (if verbalized by the patient): Female Sexual Orientation (if Verbalized by the Patient): Straight or Heterosexual Comments At time of signature, agree with nursing past medical, surgical, social and family history. There is no relevant family history pertinent to the presenting complaint Exam Narrative: GENERAL: Well-appearing, well-nourished, and in no acute distress. HEAD: Normocephalic EYES: PERRLA, conjunctivae clear ENT: Nares clear, no discharge. Mucous membranes moist. TM pearly horne with sharp light reflex bilaterally; no tragal tenderness. Oropharynx erythematous without lesions. Tonsils not enlarged and without exudate, no drooling, no hoarseness, no trismus, uvula midline. NECK: Supple. No lymphadenopathy CHEST: Clear to auscultation, breath sounds equal. No wheezing, rhonchi, rales, or stridor. No respiratory distress, speaks in full sentences. HEART: Regular rate and rhythm. No murmur heard. SKIN: Warm, dry, no rash. NEURO: Alert and oriented x3. PSYCH: Normal mood and affect Course Course Emergency Course: Patient is aware of diagnosis, understands and agrees to treatment plan. Anticipatory guidance given. Patient agrees to follow-up as directed and is aware of reasons to seek care at the emergency department. Portions of this record may have been created with voice recognition software Level of Care: Express Care Visit Vital Signs Vital signs: Reviewed. MDM - URI/Sore Throat MDM Narrative Medical decision making narrative: Differential diagnosis considered: Huitron virus, strep pharyngitis, allergic rhinitis, upper respiratory tract infection, sinusitis, rhinosinusitis, nasopharyngitis. viral pharyngitis, otitis media, otitis externa, pneumonia, bronchitis, viral cough syndrome,
== END 2022-09-07 15:23 | disposition home or self-care (01) ==
PROVIDERS: Emergency Provider Nurse Practitioner; PCP Family Medicine
DX: J02.9 Acute pharyngitis, unspecified (principal); K21.9 Gastro-esophageal reflux disease without esophagitis
CPT/HCPCS: 87081; 87880; 99213; G0463

== ENCOUNTER 2022-12-08 08:49 | Emergency (ER) | payer OTHER, MEDICAID, SELFPAY ==
--- NOTE | 2022-12-08 09:01 | ED.URI ---
HPI - URI/Sore Throat General Chief Complaint: Upper Respiratory Infection Stated Complaint: Sore Throat Time Seen by Provider: 12/08/22 09:01 Source: patient and RN notes reviewed History of Present Illness HPI Narrative: Patient is a 32-year-old female who presents to urgent care with complaints of a sore throat and intermittent fevers. Patient states that it started Thursday. States that she went to an urgent care and got free and has taken amoxicillin. Patient has had 3 doses and has also been taking ibuprofen. Denies any nausea, vomiting or ill exposures. Mother states that they went camping last week and were staying in a camper for several nights. No other acute complaints. No acute distress noted. Patient aware of the plan of care. Some parts of this dictation were generated by voice recognition software and may contain typographical and/or grammatical inaccuracies. Related Data Home Medications Medication Instructions Recorded Confirmed cabergoline 0.5 mg tablet 0.25 mg PO 2XW 12/06/21 12/08/22 amoxicillin 500 mg capsule 500 mg PO DIRECTED 12/08/22 12/08/22 phentermine 37.5 mg tablet 37.5 mg PO DIRECTED 12/08/22 12/08/22 Allergies Allergy/AdvReac Type Severity Reaction Status Date / Time No Known Allergies Allergy Verified 12/08/22 09:18 Review of Systems Review of Systems: CONSTITUTIONAL: Reports of intermittent fevers EYES: Denies visual changes, redness, or discharge. ENT: Denies rhinorrhea, congestion, otalgia. Reports of sore throat CARDIOVASCULAR: Denies chest pain, palpitations, or edema. RESPIRATORY: Denies cough or dyspnea. GASTROINTESTINAL: Denies abdominal pain, nausea, vomiting, or diarrhea. GENITOURINARY: Denies dysuria or hematuria. SKIN: Denies rash or itching. MUSCULOSKELETAL: Denies back pain, joint pain, or myalgia. NEUROLOGIC: Denies headache, numbness, or weakness. All other systems reviewed are negative, except as documented in HPI. [facility] Past Medical History Medical History History of gastroesophageal reflux (GERD) Hx of migraines Pituitary abnormality Surgical History Surgical History No significant past surgical history Family History Family History Father Unknown family medical history Mother Hypertension Lupus Social History Social History Smoking status: Never smoker Alcohol intake: current Alcohol use details: rare Substance use: never Living arrangements: with family Occupation/Education: occupation Gender identity (if verbalized by the patient): Female Sexual Orientation (if Verbalized by the Patient): Straight or Heterosexual Comments At the time of my signature, I reviewed and agree with the nursing past medical, surgical, social, and family history. There is no relevant family history pertinent to the patient complaint. Exam Narrative: GENERAL: This is a well-nourished, well-developed patient, in no apparent distress. HEAD: normocephalic, atraumatic. EYES: PERRL. Sclera clear/white. Vision is grossly intact. EARS: External ears normal, auditory canals clear and without drainage, TMs normal without perforation. Hearing grossly intact. NOSE: External nose normal with no obvious nasal discharge, nares without redness, no rhinorrhea. THROAT: Mucous membranes moist, posterior pharynx clear. Moderate postnasal drainage NECK: Neck supple, mild bilateral submandibular tender lymphadenopathy, RESPIRATORY: Clear to auscultation. Breath sounds equal bilaterally. No wheezes, rales, or rhonchi. GASTROINTESTINAL: Abdomen soft, non-tender, nondistended. Bowel sounds are active. No hepato-splenomegaly, or palpable masses. No guarding. SKIN: warm, intact with no suspicious lesions or rash, good texture and tu
[2022-12-08 09:10] VITALS: BP 132/81; PULSE 90; RESP 18; TEMP 36.6; O2SAT 99
[2022-12-08 09:21] VITALS: BP 132/81; PULSE 90; RESP 18; TEMP 36.6; O2SAT 99
== END 2022-12-08 09:50 | disposition home or self-care (01) ==
PROVIDERS: Emergency Provider Nurse Practitioner Family; PCP Family Medicine
DX: J02.9 Acute pharyngitis, unspecified (principal); K21.9 Gastro-esophageal reflux disease without esophagitis
CPT/HCPCS: 87081; 87880; 99213; G0463

== ENCOUNTER 2023-04-08 00:59 | Day surgery (SDC) | payer OTHER, MEDICAID, SELFPAY ==
[2023-04-03 11:52] VITALS: BMI 30.4
--- NOTE | 2023-04-03 11:55 | PC.NURSE ---
Report to the Outpatient Waiting Room, entrance under the green pavilion located off [facility], at time 0600 on date 04/08/23. Planned Procedure Time: 0730. Time changes happen often and if your time is changed the preop area will call you the afternoon before. - You and your visitor will be asked to self-screen and do not enter if you have any COVID symptoms. - A mask is optional within the hospital at this time. Patients may have clear liquids (water, carbonated beverages, clear teas, apple juice) until 3 hours prior to surgery with a maximum of 20 ounces. - No food from midnight until time of surgery Take the following medications with a SIP of water the morning of surgery: NONE DO NOT STOP ANY OF YOUR OTHER PRESCRIPTION MEDICATIONS PRIOR TO SURGERY ?EXCEPT THE FOLLOWING Medications to discontinue per physician: N/A Date to take last dose: N/A Please no make-up, nail mohawk, hairspray, perfume, deodorant, or body powder the day of surgery. No jewelry (including any body piercings) or valuables the day of surgery, leave them at home. Please take a shower or bath the night before, or the morning of, surgery with an antibacterial soap. Wear comfortable, loose fitting clothing. - Jewelry must be removed prior to entering the operating room. Rings and piercings that are not removed may be cut off. - The hospital will not accept responsibility for valuables. - Please leave all valuables, including medications, at home the day of surgery. If you are going home after surgery, a licensed dray driver must drive you home. - NO public transportation without another adult if you receive anesthesia. - We recommend that an adult stay with you for 24 hours following discharge. - We also recommend that you do not drive, make important decision, drink alcoholic beverages, or take any drugs that were not prescribed by your health care provider for at least 24 hours after your discharge time. Follow any additional instructions given to you from your surgeon. If you or anyone in your household have experienced Covid symptoms in the past week, please notify your surgeon or the nurse liaison at the phone number below for possible testing. Telephone instructions given to PT - ERNIE VILCHIS and asked if any additional questions and then verbalized understanding. Patient advised to call surgeon office or pre surgery nurse liaison [phone] if any additional questions.
[2023-04-08] VITALS (8 sets, daily range): BP systolic 100–124; BP diastolic 42–72; PULSE 53–86; RESP 14–18; TEMP 36.1–36.3; O2SAT 96–100
--- NOTE | 2023-04-08 06:35 | P.PNAN_ITS ---
Anes - Initial Pre Proc Eval Procedure: Operation Date: 04/08/23 07:30 Proposed Procedures p Bilateral Laparoscopic Salpingectomy - Roney Ctoa MD Date/Time: 04/08/23 06:35 Surgeon: Roeny Cota MD Pre Op Diagnosis: Female Sterilization Patient Data Age: 32 Gender: F Height: 1.73 m Weight: 90.15 kg Last Vital Signs Temp 36.3 C L 04/08/23 06:11 Pulse 64 04/08/23 06:11 Resp 18 04/08/23 06:11 BP 124/72 04/08/23 06:11 Pulse Ox 100 04/08/23 06:11 O2 Del Method Room Air 04/08/23 06:11 Allergies Allergy/AdvReac Type Severity Reaction Status Date / Time No Known Allergies Allergy Verified 04/08/23 06:08 Home Medications Medication Instructions Recorded Confirmed Type cabergoline 0.5 mg tablet 0.25 mg PO WEEKLY 12/06/21 04/08/23 History phentermine 37.5 mg tablet 37.5 mg PO DIRECTED 12/08/22 04/08/23 History Patient hx anesthesia problems: none Family hx anesthesia problems: none Results Review: All pre-operative results and documents have been reviewed as part of the pre- operative evaluation. [facility] Past Medical History Medical History History of gastroesophageal reflux (GERD) Hx of migraines Pituitary abnormality Surgical History Surgical History No significant past surgical history Family History Family History Father Unknown family medical history Mother Hypertension Lupus Social History Social History Smoking status: Never smoker Alcohol intake: current Alcohol use details: RARE Substance use: never Substance use type: does not use Living arrangements: with family Additional living arrangements comments: SON Occupation/Education: occupation Gender identity (if verbalized by the patient): Female Sexual Orientation (if Verbalized by the Patient): Straight or Heterosexual Spiritual care concerns: No Anes - Eval Final PreProcedure Day of Procedure 04/08/23 06:35 Patient weight: obese Heart: regular rate and rhythm Lungs: clear to auscultation Airway: Mallampati scale class II Neurological: alert and oriented Last oral intake: >/= 8 hours ASA classification: II Emergent: no Anesthetic plan: proceed Anesthesia type and monitoring: general ETT and standard monitoring Results Review: All pre-operative results and documents have been reviewed as part of the pre- operative evaluation. Informed Consent: The patient's anesthetic plan and its attendant risks and benefits were discussed with the patient/family/POA. Questions were solicited and answers provided to the satisfaction of the patient/family/POA.
[2023-04-08] MEDS: KETOROLAC 15 MG/ML VIAL (*BKC) IV PUSH (06:43)
[2023-04-08] MEDS: SCOPOLAMINE 1.5 MG PATCH TRANSDERM (06:43)
[2023-04-08] MEDS: ACETAMINOPHEN 500 MG TABLET 1000 MG PO (06:43)
[2023-04-08] MEDS: LACTATED RINGERS 1,000 ML 30 ML IV CONT ×2 (06:44→08:22)
--- NOTE | 2023-04-08 07:14 | WPDHPUPDATE1 ---
History and Physical Update Update Date/Time: 04/08/23 07:14 History and Physical has been reviewed, including an updated exam of the patient. There are NO changes in the patient's condition. Risks, benefits, and alternatives have been discussed and questions answered. Patient agrees to proceed with procedure.
--- NOTE | 2023-04-08 07:20 | PM.IMHP ---
H&P: HPI History of Present Illness Date/Time: 04/08/23 07:20 Chief Complaint: female sterilization Narrative: this patient is a 32-year-old female presents for surgery consultation. She would like female sterilization. We talked about salpingectomy. We talked about the failure rate, procedure, surgical details, risk, recovery. Incision sites. We talked about postoperative instructions. We discussed everything related to the topic in made a decision to perform surgery. Spent more than 40 minutes [id number]. More than 50% was counseling. Review of Systems Review of Systems: All systems reviewed & are unremarkable except as noted in HPI and below Constitutional: Constitutional: Denies chills, Denies fatigue, Denies fever(s) and Denies weakness Eyes: Eyes: Denies blurry vision, Denies change in vision, Denies loss of peripheral vision, Denies loss of vision, Denies other visual disturbances and Denies eye pain ENT: Denies vertigo, Denies dizziness, Denies hearing loss, Denies mouth pain, Denies nasal obstruction, Denies neck mass and Denies neck pain Cardiovascular: Cardiovascular: Denies chest pain, Denies diaphoresis, Denies syncope, Denies leg edema and Denies dyspnea Respiratory: Respiratory: Denies chest congestion, Denies cough, Denies hemoptysis, Denies dyspnea and Denies wheezing Gastrointestinal: Gastrointestinal: Denies abdominal pain, Denies constipation, Denies diarrhea, Denies nausea and Denies vomiting Genitourinary: Genitourinary: Denies hematuria, Denies change in libido, Denies nocturia, Denies genital lesions, Denies flank pain and Denies urinary urgency Musculoskeletal: Musculoskeletal: Denies abnormal gait, Denies back pain, Denies myalgias, Denies arthralgias, Denies joint swelling, Denies muscle weakness and Denies neck pain Integumentary/Breasts: Skin/Breast: Denies swelling, Denies breast pain, Denies breast mass, Denies dry skin, Denies nipple discharge, Denies unusual bruising and Denies jaundice Neurologic: Denies Neuro-related abnormal movements, Denies Abnormal speech present, Denies abnormal gait, Denies behavioral changes, Denies confusion, Denies vertigo, Denies dizziness, Denies syncope, Denies loss of vision, Denies memory loss, Denies convulsions and Denies weakness Psychiatric: Psychiatric: Denies abnormal sleep pattern, Denies behavioral changes, Denies change in libido, Denies confusion, Denies depression, Denies anhedonia and Denies memory loss Endocrine: Endocrine: Reports no additional endocrine complaints, Denies change in libido and Denies fatigue Hematologic/Lymphatic: Hematologic/Lymphatic: Reports no additional hematologic/lymphatic complaints Allergic/Immunologic: Allergic/Immunologic: Reports no additional allergic/immunologic complaints and Denies wheezing PMFSH Past Medical History Medical History History of gastroesophageal reflux (GERD) Hx of migraines Pituitary abnormality Surgical History Surgical History No significant past surgical history Family History Family History Father Unknown family medical history Mother Hypertension Lupus Social History Social History Smoking status: Never smoker Alcohol intake: current Alcohol use details: RARE Substance use: never Substance use type: does not use Living arrangements: with family Additional living arrangements comments: SON Occupation/Education: occupation Gender identity (if verbalized by the patient): Female Sexual Orientation (if Verbalized by the Patient): Straight or Heterosexual Spiritual care concerns: No Meds Home Medications and Allergies Home Medications Medication Instructions Recorded Confirmed Type cabergoline 0.5 mg tablet 0.25 mg PO WEEKLY 0
--- NOTE | 2023-04-08 08:08 | W.PM.PROC2 ---
Procedure Note - Detailed Date of Procedure 04/08/23 Pre-op Diagnosis Female Sterilization Post-op Diagnosis Same Procedure Performed Laparoscopic bilateral salpingectomy Surgeon Roney Cota MD Anesthesia General Indications Unwanted fertility Findings Normal pelvic anatomy Description of Procedure The patient was taken the operating room. She was prepped and draped in the dorsal lithotomy position after induction of general anesthesia. A 5 mm skin incision was made in the left upper quadrant of the abdominal skin. A 5 mm trocar was inserted the intra-abdominal cavity under direct visualization of the scope. Pneumoperitoneum was achieved. A 5 mm trocar was inserted in the left lower quadrant identical fashion. A 5 mm infraumbilical trocar was inserted in identical fashion as well. The bilateral fallopian tubes were removed. This was done by using a LigaSure cautery. The mesosalpinx adjacent to the tube was cauterized transected with LigaSure. This was initiated in the area the ovary and in a stepwise fashion moved medially to the area of the cornu of the uterus. Once there the fallopian tube was cauterized and transected. This was done in identical fashion on each side. The fallopian tubes were taken out through the left lower quadrant trocar site. The pneumoperitoneum was reduced. The trocars removed. The skin was closed with subcuticular 4 Monocryl and covered with Dermabond. She was taken to cover stable condition. Sponge lap and needle counts were correct x2. Estimated Blood Loss 5 Drains No Packing No Pathology Yes Complications No immediate complications Condition Stable Disposition PACU
[2023-04-08] MEDS: fentaNYL CITRATE INJ (*CRX) 100 MCG/2 ML VIAL 25 MCG IV PUSH ×6 (08:36→09:40)
[2023-04-08] MEDS: oxyCODONE HCL (*CRX) 5 MG TAB IR PO (09:52)
== END 2023-04-08 10:30 | disposition home or self-care (01) ==
PROVIDERS: PCP Family Medicine; Visit Provider Obstetrics & Gynecology
PROC: (CPT 49320; principal; 2023-04-08 07:30)
DX: Z30.2 Encounter for sterilization (principal); E66.9 Obesity, unspecified; Z68.30 Body mass index [BMI] 30.0-30.9, adult
CPT/HCPCS: 58661; 88302; A9270; J1100; J1885; J2250; J2405; J2704; J2710; J3010; J7030; J7120

== ENCOUNTER 2023-05-25 10:07 | Emergency (ER) | payer OTHER, MEDICAID, SELFPAY ==
--- NOTE | 2023-05-25 10:13 | ED.SKABFB ---
HPI - Skin/Abscess/Foreign Bdy General Chief complaint: Skin/Abscess/Foreign Body Stated complaint: Skin Sore/Finger Time Seen by Provider: 05/25/23 10:13 Source: patient Mode of arrival: ambulatory Limitations: no limitations History of Present Illness HPI narrative: Tabby is a 32-year-old female patient presenting to the clinic today with complaints of a skin sore to her left 3rd distal finger. She reports this has been going on for approximately 1 week. Has tried to open the area up and has gotten some clear drainage out of it. Area is red and swollen and tender to palpation. She denies any fever or chills. Related Data Home Medications Medication Instructions Recorded Confirmed cabergoline 0.5 mg tablet 0.25 mg PO WEEKLY 12/06/21 05/25/23 phentermine 37.5 mg tablet 37.5 mg PO DIRECTED 12/08/22 05/25/23 Allergies Allergy/AdvReac Type Severity Reaction Status Date / Time No Known Allergies Allergy Verified 05/25/23 10:12 Review of Systems Review of Systems: Pertinent positives per HPI. Patient denies any fever, chills, rash, headache, visual changes, dizziness, cough, runny nose, sore throat, shortness of breath, chest pain, palpitations, nausea, vomiting, diarrhea, constipation, abdominal pain, or any urinary issues. [facility] Past Medical History Medical History History of gastroesophageal reflux (GERD) Hx of migraines Pituitary abnormality Surgical History Surgical History No significant past surgical history Family History Family History Father Unknown family medical history Mother Hypertension Lupus Social History Social History Smoking status: Never smoker Alcohol intake: current Alcohol use details: RARE Substance use: never Substance use type: does not use Living arrangements: with family Additional living arrangements comments: SON Occupation/Education: occupation Gender identity (if verbalized by the patient): Female Sexual Orientation (if Verbalized by the Patient): Straight or Heterosexual Spiritual care concerns: No Comments At the time of my signature, I reviewed and agree with the nursing past medical, surgical, social, and family history. There is no relevant family history pertinent to the patient complaint. Exam Narrative: General: Well-developed, well nourished, in no apparent distress Head: Normocephalic, atraumatic. Cardio: Regular rate and rhythm, s1 and s2 normal, no murmur appreciated. Resp: Clear to auscultation bilaterally, no rhonchi, rales, wheezing or rubs. Integumentary: May, warm, and dry, intact without lesion, no rashes. Left 3rd distal finger paronychia-tender to palpation, redness, and swelling with mild fluctuance Course Course Emergency Course: Portions of this record may have been created with voice recognition software. Level of Care: Express Care Visit Vital Signs Vital signs: Vital signs reviewed Procedures Abscess I/D Left 3rd finger: Date of Incision: 05/25/23 Side (if applicable): left Local Anesthetic: none Technique: other (18 gauge needle) Amount of fluid expressed (mL): 0 Irrigation: No Packing used?: none I&D Results: Blood Complications: other (none) Abcess I&D Additional Comments: Verbal consent obtained for drainage of paronychia to the left middle finger. Cleansed area using alcohol prep pad. An 18 gauge needle beveled was used to attempt to drain paronychia without success. Did have some scant bleeding without pus. Area was re-cleansed with alcohol prep pad and triple antibiotic ointment and a Band-Aid was applied. Patient tolerate procedure well. MDM - Skin/Abscess/Foreign Bdy MDM Narrative
[2023-05-25 10:15] VITALS: BP 129/77; PULSE 78; RESP 20; TEMP 36.7; O2SAT 100
== END 2023-05-25 10:34 | disposition home or self-care (01) ==
PROVIDERS: Emergency Provider Nurse Practitioner Family; PCP Family Medicine
DX: L03.012 Cellulitis of left finger (principal); K21.9 Gastro-esophageal reflux disease without esophagitis
CPT/HCPCS: 10060; 99213; G0463

== ENCOUNTER 2023-12-25 08:30 | Emergency (ER) | payer OTHER, MEDICAID, SELFPAY ==
[2023-12-25 08:34] VITALS: BP 117/69; PULSE 50; RESP 16; TEMP 36.6; O2SAT 100
--- NOTE | 2023-12-25 08:56 | ED.EAR ---
HPI - Ear Problem General Chief complaint: Ear Stated complaint: Left Ear Pain Time Seen by Provider: 12/25/23 08:58 Source: patient, RN notes reviewed and old records reviewed Mode of arrival: ambulatory Limitations: no limitations History of Present Illness HPI Narrative: 43-year-old female presents to the [facility] with complaints of left ear pain for 2 days. Patient reports that she does use Q-tips. Denies any other symptoms MD Complaint: ear pain Related Data Allergies Allergy/AdvReac Type Severity Reaction Status Date / Time No Known Allergies Allergy Verified 05/25/23 10:12 Review of Systems Review of Systems: All systems reviewed & are unremarkable except as noted in HPI and below Constitutional: Constitutional: Reports no additional constitutional complaints Eyes: Eyes: Reports no additional eye complaints ENT: Reports as per HPI and Reports otalgia (Ear) Cardiovascular: Cardiovascular: Reports no additional cardiovascular complaints, Denies chest pain and Denies dyspnea Respiratory: Respiratory: Reports no additional respiratory complaints, Denies chest congestion, Denies cough and Denies dyspnea Gastrointestinal: Gastrointestinal: Reports no additional gastrointestinal complaints, Denies abdominal pain, Denies nausea and Denies vomiting Musculoskeletal: Musculoskeletal: Reports no additional musculoskeletal complaints Integumentary/Breasts: Skin/Breast: Reports system reviewed and no additional complaints, except as docu Neurologic: Reports system reviewed and no additional complaints, except as documented Psychiatric: Psychiatric: Reports no additional psychiatric complaints Allergic/Immunologic: Allergic/Immunologic: Reports no additional allergic/immunologic complaints [facility] Past Medical History Medical History History of gastroesophageal reflux (GERD) Hx of migraines Pituitary abnormality Surgical History Surgical History No significant past surgical history Family History Family History Father Unknown family medical history Mother Hypertension Lupus Social History Social History Smoking status: Never smoker Alcohol intake: current Alcohol use details: RARE Substance use: never Substance use type: does not use Living arrangements: with family Additional living arrangements comments: SON Occupation/Education: occupation Gender identity (if verbalized by the patient): Female Sexual Orientation (if Verbalized by the Patient): Straight or Heterosexual Spiritual care concerns: No Comments At the time of my signature, I reviewed and agree with the nursing past medical, surgical, social, and family history. There is no relevant family history pertinent to the patient complaint. Exam Const: General: cooperative, healthy appearing, comfortable, no acute distress, well developed, alert and well nourished Nutritional Appearance: well nourished Orientation/consciousness: patient oriented x3 Limitations: no limitations HENMT: Head: normal to inspection Ears: hearing grossly normal bilaterally, external ears normal, TM's normal bilaterally, mastoids normal, no periauricular adenopathy and Abnormal EAC present erythema on the left, edema on the left and EAC tenderness on the left; no foreign body and no otic discharge Face/Nose/Sinus: Normal external nose present, Normal nares present, Normal nasal mucous membranes and turbinates present, normal facial exam and face symmetric Face and sinus: normal facial exam and face symmetric Mouth: Yes Normal oral and palatal mucosa present, Yes lip normal and Yes moist mucous membranes Throat: posterior oropharynx normal and uvula midline Eyes: General: appearance normal, both eyes and all related structures Alignme
== END 2023-12-25 09:11 | disposition home or self-care (01) ==
PROVIDERS: Emergency Provider Nurse Practitioner; PCP Family Medicine
DX: S00.412A Abrasion of left ear, initial encounter (principal); L08.9 Local infection of the skin and subcutaneous tissue, unspecified; X58.XXXA Exposure to other specified factors, initial encounter; K21.9 Gastro-esophageal reflux disease without esophagitis
CPT/HCPCS: 99213; G0463

== ENCOUNTER 2024-08-12 11:58 | Emergency (ER) | payer OTHER, SELFPAY ==
[2024-08-12 12:08] VITALS: BP 125/79; PULSE 66; RESP 18; TEMP 36.6; O2SAT 100
--- NOTE | 2024-08-12 12:37 | ED_ITS ---
HPI - URI/Sore Throat General Chief Complaint: Upper Respiratory Infection Stated Complaint: CONGESTION/HEADACHE/EAR/COUGH Source: patient and RN notes reviewed Mode of arrival: ambulatory Limitations: no limitations History of Present Illness HPI Narrative: 34-year-old female presented for complaint headache, body aches, sinus pressure/congestion, cough,. Onset 5 days. Started with left ear pain today. Denies sob, wheezing, n/v/d. Took Mucinex for symptoms. MD elicited complaint: cough Related Data Allergies Allergy/AdvReac Type Severity Reaction Status Date / Time No Known Allergies Allergy Verified 08/12/24 12:15 Review of Systems Review of Systems: CONSTITUTIONAL: Endorses malaise, denies chills, sweats, fever EYES: Denies visual changes, redness, or discharge ENT: Reports rhinorrhea, congestion, sinus pain, otalgia CARDIOVASCULAR: Denies chest pain, palpitations, edema RESPIRATORY: Reports cough, post nasal drainage. Denies dyspnea GASTROINTESTINAL: Denies abdominal pain, nausea, vomiting, diarrhea MUSCULOSKELETAL: Endorses myalgia PMFSH Past Medical History Medical History Pituitary abnormality History of gastroesophageal reflux (GERD) Hx of migraines Surgical History Surgical History No significant past surgical history Family History Family History Father Unknown family medical history Mother Hypertension Lupus Social History Social History Smoking status: Never smoker Alcohol intake: current Alcohol use details: RARE Substance use: never Substance use type: does not use Living arrangements: with family Additional living arrangements comments: SON Occupation/Education: occupation Gender identity (if verbalized by the patient): Female Sexual Orientation (if Verbalized by the Patient): Straight or Heterosexual Spiritual care concerns: No Exam Narrative: GENERAL: Ill-appearing, nontoxic no acute distress. EYES: PERRLA, conjunctivae clear ENT: Mucous membranes moist. Right TM pearly horne with dull light reflex; Left TM erythematous, bulging and intact; canal not erythematous, no drainage no tragal tenderness. Oropharynx not erythematous without lesions or exudate, no drooling, no hoarseness, no trismus, uvula midline. No tripod positioning, muffled voice, soft palate or pharyngeal wall bulging NECK: Supple. No lymphadenopathy CHEST: Clear to auscultation, breath sounds equal. No wheezing, rhonchi, rales, or stridor. No respiratory distress, speaks in full sentences. HEART: Regular rate and rhythm. No murmur heard. SKIN: Warm, dry NEURO: Alert and oriented x3. PSYCH: Normal mood and affect Course Course Emergency Course: Patient is aware of diagnosis, understands and agrees to treatment plan. Anticipatory guidance given. Patient agrees to follow-up as directed and is aware of reasons to seek care at the emergency department. Portions of this record may have been created with voice recognition software Level of Care: Express Care Visit Vital Signs Vital signs: Vital Signs Temperature 97.8 F 08/12/24 12:08 Pulse Rate 66 08/12/24 12:08 Respiratory Rate 18 08/12/24 12:08 Blood Pressure 125/79 08/12/24 12:08 Pulse Oximetry 100 08/12/24 12:08 Temperature 97.8 F 08/12/24 12:08 Pulse Rate 66 08/12/24 12:08 Respiratory Rate 18 08/12/24 12:08 Blood Pressure 125/79 08/12/24 12:08 Pulse Oximetry 100 08/12/24 12:08 reviewed MDM - URI/Sore Throat MDM Narrative Medical decision making narrative: Discussed physical exam findings Consistent with a left AOM. Negative flu and COVID.. Advised supportive measures and signs/symptoms to go to the ER. Pt is appropriate for outpt treatment and f/u. Differential Diagnosis Differential diagnosis: Likely upper respiratory infection, otitis media, sinusitis, viral infection, influenza and pharyngitis Discharge Plan Discharge Clinical Impression: Otitis media Patient Disposition: Home, Self-Care Condition: Stable Instructions: Antibiotic Form, Ear Infection (ED) Additional Instructions: Take antibiotics as directed for left ear infection Recommend antihistamine such as Benadryl, Zyrtec or Minerva for sinus c ongestion Flonase nasal spray, 1 spray in each nostril once daily until symptoms improve Symptomatic treatment includes: rest, fluids, and increase humidity of the air at home. Tylenol 1000mg every 8 hours as needed to reduce fever, pain Please schedule a follow-up visit with your personal physician If your symptoms persist, change or worsen significantly, go to the emergency department for further evaluation. Patient Language: [place] Prescriptions: New amoxicillin-pot clavulanate 875-125 mg tablet 1 tablet PO Q12H 7 Days Qty: 14 0RF Follow-up/Referrals: PHYSICIAN,CERTIFIED MEDICAL CODING SPECIALIST [Primary Care Provider] - Stand Alone Forms: Work/School Release IP Time of Disposition: 13:02
[2024-08-12 13:04] LABS: EDCOVIDSCREEN Negative (Negative); EDINFLUASCREEN Negative (Negative); EDINFLUBSCREEN Negative (Negative)
== END 2024-08-12 13:08 | disposition home or self-care (01) ==
PROVIDERS: Emergency Provider Nurse Practitioner Family
DX: H66.92 Otitis media, unspecified, left ear (principal); Z20.822 Contact with and (suspected) exposure to COVID-19
CPT/HCPCS: 87426; 87804; 99213; G0463